=== PATIENT | male | born 1970 | race Caucasian/White ===

== ENCOUNTER 2023-07-29 09:32 | Outpatient (CLI) | payer BC | END 2023-07-29 09:33 | disposition home or self-care (01) | LOC: SCSMRI 09:32 | PROVIDERS: ATTEND Specialist | DX: M51.16 Intervertebral disc disorders with radiculopathy, lumbar region (principal) | CPT/HCPCS: 72146; 72148 ==

== ENCOUNTER 2023-10-28 15:09 | Outpatient (CLI) | payer BC | END 2023-10-28 15:10 | disposition home or self-care (01) | LOC: SCSRAD 15:09 | PROVIDERS: ATTEND Internal Medicine Rheumatology | DX: M46.1 Sacroiliitis, not elsewhere classified (principal) | CPT/HCPCS: 72202 ==